=== PATIENT | male | born 1930 | race Caucasian/White ===

== ENCOUNTER 2016-10-13 23:48 | Inpatient (IN) | payer OTHER ==
[~2016-10-13] VITALS: Ht 175.3 cm; Wt 68.9 kg
[~2016-10-13 23:48] MED LIST: ALEN70TA2 PO; ASPEC81 PO; ATOR-54 PO; B CO PO; CHOL100010 PO; CMD75 PO; CYAN100020 PO; FRRS300 PO; GLC/500 PO; LISI2.5T5 PO; MULTCHW PO; NTRGSL/4 UT; TAMS0.4C59 PO; TPRSR25 PO; WARF1TAB6 PO; XPNINS1255 INH
[2016-10-14] MEDS ORDERED: ASPIRIN 324 MG CHEW PO STA (00:07)
--- NOTE | 2016-10-14 00:26 | EMERGENCY ROOM VISIT NOTE ---
History Report prepared by Latoya: Rajesh Ch Under the Supervision of: Dr. Niko Pinon M.D. First contact with patient: 23:58 Chief Complaint: CHEST PAIN Stated Complaint: CHEST AND LEFT SHOULDER PAIN History of Present Illness The patient is a 86 year old male who presents to the Emergency Room with complaints of resolved chest pain that occurred prior to arrival. The patient's states that the patient was having chest pain, and he took 3 nitro, and the pain has felt better. Additionally states that he was sweaty and he had some shortness of breath. He has a past history of a mechanical heart valve, a pacemaker, and a hip replacement. Additionally, he is currently on Coumadin. The patient denies any abdominal pain, melena, or loss of consciousness. Source of History: patient, spouse/significant other Onset: prior to arrival Position: chest Timing: resolved Modifying Factors (Relieving): other (nitro) Associated Symptoms: + SOB, + diaphoresis, No LOC, No abdominal pain, No melena Review of Systems See HPI for pertinent positives & negatives. A total of 10 systems reviewed and were otherwise negative. Past Medical & Surgical Medical Problems: (1) BPH (benign prostatic hyperplasia) (2) CAD (coronary artery disease) (3) CHF (congestive heart failure) (4) CKD (chronic kidney disease), stage III (5) COPD (chronic obstructive pulmonary disease) (6) DM2 (diabetes mellitus, type 2) (7) EKG abnormalities (8) H/O: CVA (cerebrovascular accident) (9) HLD (hyperlipidemia) (10) HTN (hypertension) (11) NSTEMI (non-ST elevated myocardial infarction) (12) Osteoporosis (13) PVD (peripheral vascular disease) (14) SOB (shortness of breath) (15) Tobacco abuse Surgical Problems: (1) H/O carotid endarterectomy (2) H/O colonoscopy (3) History of cataract surgery (4) History of hip surgery (5) Hx of CABG (6) Hx of tonsillectomy (7) Mechanical heart valve present (8) S/P aortobifemoral bypass surgery (9) S/P MVR (mitral valve replacement) Family History Diabetes mellitus FHx: heart disease Hypertension Social History Smoking Status: Current Every Day Smoker Alcohol Use: occasionally Marital Status: Housing Status: lives with significant other Occupation Status: retired Current/Historical Medications Scheduled Alendronate Sodium (Fosamax), 70 MG PO WK Aspirin (Aspirin 81), 81 MG PO DAILY Atorvastatin (Atorvastatin Calcium), 40 MG PO DAILY B-Complex W/ C & Folic Acid (Super B-Complex/Vitamin C), 1 TABLET PO DAILY Cholecalciferol (Vitamin D), 2,000 UNIT PO QPM Cyanocobalamin (Vitamin B12), 1 TAB PO DAILY Ferrous Sulfate (Ferrous Sulfate), 325 MG PO QAM Lisinopril (Prinivil), 2.5 MG PO DAILY Metformin Hcl (Glucophage), 1,000 MG PO QPM Metoprolol Succinate (Metoprolol Succinate ER), 25 MG PO DAILY Multiple Vitamins W/ Minerals (Centrum Silver), 1 TAB PO DAILY Tamsulosin HCl (Tamsulosin HCl), 0.4 MG PO DAILY Warfarin Sod (Jantoven), 7.5 MG PO UD Scheduled PRN Levalbuterol Hcl (Levalbuterol Hcl), 1 AMP INH Q4 PRN for SOB/Wheezing Nitroglycerin (Nitrostat), 0.4 MG UT UD PRN for Chest Pain Tramadol (Ultram), 50 MG PO Q6 PRN for Pain Allergies Coded Allergies: Gemfibrozil (Verified Allergy, Unknown, 10/14/16) Physical Exam Vital Signs Date Time Temp Pulse Resp B/P Pulse Ox O2 Delivery O2 Flow Rate FiO2 10/14/16 01:30 87 21 163/92 94 Room Air 10/14/16 01:00 91 21 173/98 92 Room Air 10/14/16 00:31 92 24 156/89 92 Room Air 10/14/16 00:26 94 24 164/86 93 Room Air 10/14/16 00:20 93 10/14/16 00:09 Room Air 10/13/16 23:54 36.7 99 20 135/75 91 Room Air Physical Exam GENERAL: Patient is elderly appearing and in no acute distress. HEENT: No acute trauma, normocephalic atraumatic, mucous membranes moist, no nasal congestion, no scleral icterus. NECK: No stridor, no adenopathy, no meningismus, trachea is midline. LUNGS: No dyspnea. Clear to auscultation and equal bilaterally. No wheeze, no rhonchi. HEART: Soft, metallic click with slight murmur. Regular rate and rhythm. No rubs, gallops appreciated. CHEST: Pacemaker in the left upper chest. ABDOMEN: Soft, nontender, bowel sounds positive, no masses appreciated, no peritonitis. BACK: No midline tenderness, no CVA tenderness EXTREMITIES: Normal motion all extremities, no cyanosis, no edema. NEUROLOGIC: Alert and oriented, no acute motor or sensory deficits, no focal weakness, cranial nerves grossly intact. SKIN: No rash, no jaundice, no diaphoresis. Medical Decision & Procedures ER Provider Diagnostic Interpretation: X ray results are stated below per my interpretation. Opacities in the right lower lung field. No pneumothorax. No obvious effusion Laboratory Results 10/14/16 00:20 Red Blood Count 3.68, Mean Corpuscular Volume 88.9, Mean Corpuscular Hemoglobin 29.1, Mean Corpuscular Hemoglobin Concent 32.7, Mean Platelet Volume 9.1, Neutrophils (%) (Auto) 90.1, Lymphocytes (%) (Auto) 6.1, Monocytes (%) (Auto) 3.4, Eosinophils (%) (Auto) 0.2, Basophils (%) (Auto) 0.2, Neutrophils # (Auto) 5.64, Lymphocytes # (Auto) 0.38, Monocytes # (Auto) 0.21, Eosinophils # (Auto) 0.01, Basophils # (Auto) 0.01 10/14/16 00:20 Test 10/14/16 00:20 White Blood Count 6.25 K/uL (4.8-10.8) Red Blood Count 3.68 M/uL (4.7-6.1) Hemoglobin 10.7 g/dL (14.0-18.0) Hematocrit 32.7 % (42-52) Mean Corpuscular Volume 88.9 fL (80-100) Mean Corpuscular Hemoglobin 29.1 pg (25-34) Mean Corpuscular Hemoglobin Concent 32.7 g/dl (32-36) Platelet Count 237 K/uL (130-400) Mean Platelet Volume 9.1 fL (7.4-10.4) Neutrophils (%) (Auto) 90.1 % Lymphocytes (%) (Auto) 6.1 % Monocytes (%) (Auto) 3.4 % Eosinophils (%) (Auto) 0.2 % Basophils (%) (Auto) 0.2 % Neutrophils # (Auto) 5.64 K/uL (1.4-6.5) Lymphocytes # (Auto) 0.38 K/uL (1.2-3.4) Monocytes # (Auto) 0.21 K/uL (0.11-0.59) Eosinophils # (Auto) 0.01 K/uL (0-0.5) Basophils # (Auto) 0.01 K/uL (0-0.2) RDW Standard Deviation 46.6 fL (36.4-46.3) RDW Coefficient of Variation 14.2 % (11.5-14.5) Immature Granulocyte % (Auto) 0.0 % Immature Granulocyte # (Auto) 0.00 K/uL (0.00-0.02) Ovalocytes 1+ Acanthocytes 1+ Prothrombin Time 39.7 SECONDS (9.0-12.0) Prothromb Time International Ratio 3.5 (0.9-1.1) Activated Partial Thromboplast Time 39.7 SECONDS (21.0-31.0) Partial Thromboplastin Ratio 1.5 Anion Gap 6.0 mmol/L (3-11) Estimated GFR () 53.1 Estimated GFR (Non- 45.8 BUN/Creatinine Ratio 10.3 (10-20) Calcium Level 9.0 mg/dl (8.5-10.1) Creatine Kinase MB 10.8 ng/ml (0.5-3.6) Creatine Kinase MB Ratio 6.5 (0-3.0) Troponin I 1.470 ng/ml (0-0.045) Laboratory results as reviewed by me. Medications Administered Medications (Trade) Dose Ordered Sig/Alejandro Route Start Time Stop Time Status Last Admin Dose Admin Aspirin (Aspirin Chew) 324 mg NOW STAT PO 10/14/16 00:07 10/14/16 00:08 DC 10/14/16 00:16 324 MG ECG Indication: chest pain Rate (beats per minute): 103 Rhythm: other (atrial sensed ventricular paced) Findings: no acute ischemic change, no ectopy ED Course 2358: The patient was evaluated in room A4. A complete history and physical exam was performed. 0007: Aspirin Chew 324mg PO 0125: I reevaluated the patient, and he was feeling well. 0128: I discussed the patient's case with Dr. Almeida. He is going to evaluate the patient for further treatment Medical Decision Differential: Cardiac Ischemia (STEMI, NSTEMI, Unstable Angina, etc), Aortic Dissection, Arrhythmia, Pulmonary Embolism, Pneumonia, Pneumothorax, MSK, Infectious, Pericarditis/Myocarditis, Esophageal Rupture, Gastrointestinal, amongst other pathologies entertained. 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 Associated nausea, diaphoresis, lightheaded and SHOB. Now without discomfort. EKG with ventricular paced rhythm without acute ischemia and he is without any symptoms currently. INR is therapeutic. Symptoms not consistent with dissection and PE unlikely given INR level. Trop elevated where previously normal. I suspect he had NSTEMI though could have been arrhythmia as well. Hold on further anticoagulation given INR and completely symptom free throughout ED stay. Will come in for further work-up and evaluation. Consults Time Called: 012 Consulting Physician: Dr. Almeida Returned Call: [phone] I discussed the patient's case with Dr. Almeida. He is going to evaluate the patient for further treatment Impression Primary Impression: Left sided chest pain Additional Impression: Elevated troponin Scribe Attestation The scribe's documentation has been prepared under my direction and personally reviewed by me in its entirety. I confirm that the note above accurately reflects all work, treatment, procedures, and medical decision making performed by me. Departure Information Dispostion Being Evaluated By Hospitalist Prescriptions Levalbuterol Hcl (LEVALBUTEROL HCL) 1.25 Mg/3 Ml Neb 1 AMP INH Q4 Y for SOB/Wheezing, #1 Prov: Donald Almeida MD 10/14/16 Tramadol (Ultram) 50 Mg Tab 50 MG PO Q6 Y for Pain, #30 TAB Prov: Donald Almeida MD 10/14/16 Warfarin Sod (Jantoven) 5 Mg Tab 7.5 MG PO UD, #30 COUMADIN 10MG PO DAILY ON , AND WEDNESDAY AND COUMADIN 7.5MG PO DAILY ON WEDNESDAY,WEDNESDAY, WEDNESDAY AND WEDNESDAY Prov: Donald Almeida MD 10/14/16 Metoprolol Succinate (Metoprolol Succinate ER) 25 Mg Tabcr 25 MG PO DAILY, #30 Prov: Donald Almeida MD 10/14/16 Referrals Arabella Davidson M.D. (PCP) Patient Instructions My [facility] Problem Qualifiers
[2016-10-14 00:36] LABS: HEMATOCRIT 32.7 % (42-52); MEAN CELL VOLUME 88.9 fL (80-100); MEAN CORPUSCULAR HEMOGLOBIN 29.1 pg (25-34); MEAN CORPUSCULAR HGB CONC 32.7 g/dl (32-36); MEAN PLATELET VOLUME 9.1 fL (7.4-10.4); PLATELET COUNT 237 K/uL (130-400); RED BLOOD COUNT 3.68 M/uL (4.7-6.1); WHITE BLOOD COUNT 6.25 K/uL (4.8-10.8)
[2016-10-14 00:45] LABS: INR 3.5 (0.9-1.1); PARTIAL THROMBOPLASTIN RATIO 1.5; PROTHROMBIN TIME (PATIENT) 39.7 SECONDS (9.0-12.0)
[2016-10-14] MEDS ORDERED: TPRSR/25 PO ×2 (00:51→02:33)
[2016-10-14] MEDS ORDERED: METF-384 PO (00:51)
[2016-10-14] MEDS ORDERED: FLM4 PO (00:51)
[2016-10-14] MEDS ORDERED: LPT40 PO (00:54)
[2016-10-14] MEDS ORDERED: CHOL200010 PO (00:55)
[2016-10-14] MEDS ORDERED: ASPI-435 PO (00:55)
[2016-10-14] MEDS ORDERED: LISI-729 PO (00:57)
[2016-10-14 00:59] LABS: ACANTHOCYTES 1+; BASO % 0.2 %; BASO ABS # 0.01 K/uL (0-0.2); COMPLETE YES; EOS % 0.2 %; LYMPH % 6.1 %; LYMPH ABS # 0.38 K/uL (1.2-3.4); MONO % 3.4 %; NEUT % 90.1 %; OVALOCYTES 1+
[2016-10-14] MEDS ORDERED: WARF5TAB7 PO ×2 (00:59→02:33)
[2016-10-14 01:00] LABS: BLOOD UREA NITROGEN 14 mg/dl (7-18); BUN/CREATININE RATIO 10.3 (10-20); CARBON DIOXIDE 30 mmol/L (21-32); CHLORIDE 105 mmol/L (98-107); GLUCOSE 244 mg/dl (70-99); POTASSIUM 4.2 mmol/L (3.5-5.1); SODIUM 141 mmol/L (136-145)
[2016-10-14 01:06] LABS: CKMB/CK RATIO 6.5 (0-3.0)
[2016-10-14 01:40] VITALS: Ht 175.3 cm; Wt 68.9 kg
[2016-10-14] MEDS ORDERED: ONDANSETRON INJ 2 MG/ML 2 ML VIAL IV PRN (02:30)
[2016-10-14] MEDS ORDERED: ACETAMINOPHEN 325 MG TAB PO PRN (02:30)
[2016-10-14] MEDS ORDERED: NITROGLYCERIN 0.4 MG SL PER TAB CHARGE SL PRN (02:30)
[2016-10-14] MEDS ORDERED: MAGNESIUM HYDROXIDE SUSP 30 ML UDC PO PRN (02:30)
[2016-10-14] MEDS ORDERED: MoRPHine SULFATE 2 MG/ML CARP IV PRN (02:30)
[2016-10-14] MEDS ORDERED: ALUMINUM/MAGNESIUM/SIMETH (MAALOX MAX) 30 ML UDC PO PRN (02:30)
[2016-10-14] MEDS ORDERED: TRAM-10 PO (02:33)
[2016-10-14] MEDS ORDERED: LEVA1.258 INH (02:33)
[2016-10-14] MEDS ORDERED: LEVALBUTEROL 1.25MG/3ML NEB INH PRN (02:45)
[2016-10-14] MEDS ORDERED: NITROGLYCERIN 0.4 MG SL PER TAB CHARGE UT PRN (02:45)
[2016-10-14] MEDS ORDERED: TRAMADOL HCL 50 MG TAB PO PRN (02:45)
--- NOTE | 2016-10-14 04:02 | HISTORY & PHYSICAL EXAMINATION ---
DATE OF ADMISSION: 10/14/2016 CHIEF COMPLAINT: Chest pain. HISTORY OF PRESENT ILLNESS: This is an 86-year-old male with past medical history significant for CAD, status post CABG, mitral valve replacement on Coumadin, diabetes, hypertension, hyperlipidemia, COPD, tobacco abuse, history of CHF, and chronic kidney disease stage III, presents with chest pain. The patient after eating his dinner around 6:00, was not feeling well and then at 9:00, he had some nausea and had some chest pain. He complained of chest pain mostly around his pacemaker site, about 5/10 in severity and radiating to his left shoulder, associated with some nausea, diaphoresis, and shortness of breath, and he took 3 nitroglycerin, that resolved his pain and he was brought into the ER. Currently resting comfortably. He is currently chest pain free. Denies any shortness of breath. No nausea, no vomiting at this time. Hemodynamically stable. No recent fever or chills. No cough. Appetite has not returned since his hip surgery, lost several pounds, ambulates with the help of a cane. Normal bowel and bladder movements. ALLERGIES: TO GEMFIBROZIL. PAST MEDICAL HISTORY: As mentioned above. PAST SURGICAL HISTORY: History of CABG, history of hip surgery, cataract surgery, carotid endarterectomy, mechanical heart valve replacement, status post aortobifemoral bypass surgery. MEDICATIONS: Currently, the patient is on Fosamax 70 mg p.o. weekly, Coumadin alternating 10 mg and 7.5 mg daily, Flomax 0.4 mg daily, ferrous sulfate 325 mg p.o. daily, metoprolol succinate 25 mg p.o. daily, Lipitor 40 mg p.o. daily, metformin 1000 mg p.o. daily with breakfast, lisinopril 2.5 mg p.o. daily, tramadol 50 mg p.o. q. 6 hours p.r.n., Xopenex inhalation every 4 hours p.r.n., vitamin D 2000 units p.o. daily, aspirin enteric-coated 81 mg p.o. daily, B complex-C one capsule p.o. daily, multivitamins with minerals 1 capsule p.o. daily, nitroglycerin 0.4 mg sublingual p.r.n., vitamin B12 1000 mcg p.o. daily. FAMILY HISTORY: Significant for brother, cancer and lung disorder. Sister, cancer. Mother has diabetes. Mother has stroke. SOCIAL HISTORY: Smokes 0.75 packs a day for last 60 years. Alcohol occasional. No drug use. Currently lives with his . REVIEW OF SYMPTOMS: As per HPI. Rest of review of systems negative. PHYSICAL EXAMINATION: GENERAL: The patient is old and frail, not in distress. VITAL SIGNS: Temperature 36.7, pulse 87, respiratory rate 21, blood pressure 163/92, oxygen 94% on room air. HEENT: No pallor, no icterus. Pupils equal, round, and reactive to light. NECK: No JVD, no neck masses, no carotid bruit. CARDIOVASCULAR: S1, S2 heard. Murmur in mitral area. No gallop. ABDOMEN: Soft, bowel sounds present, nontender. No distention. CENTRAL NERVOUS SYSTEM: Cranial nerves II-XII grossly intact. Nonfocal. EXTREMITIES: No edema, no erythema. LABORATORY DATA: WBC 6.2, hemoglobin 10.7, hematocrit 32.7, platelets 237. Sodium 141, potassium 4.2, chloride 105, CO2 of 30, BUN 14, creatinine 1.4, serum glucose 244, calcium 9, total creatine kinase 166, troponin 1.4. PT 10.5, INR 3.5. Chest x-ray, no acute findings seen. EKG: Ventricular paced rhythm with rate of 103. ASSESSMENT AND PLAN: This is an 86-year-old male who presents with chest pain. 1. Chest pain, [id number] elevation myocardial infarction with Troponin of 1.4. The patient is currently chest pain free after he took his nitroglycerin. The patient is on Coumadin for his mitral valve replacement and INR is 3.5. The patient will continue his home medications of aspirin, beta jordan, statin. Follow his lipid profile. Trend his cardiac enzymes. Follow echocardiogram. Close monitor in the PCU and cardiology consult. 2. History of coronary artery disease, status post coronary artery bypass graft. Continue his home medications of aspirin, statin, beta jordan and lisinopril. 3. History of diabetes. Hold metformin. Follow HbA1c. Place on insulin sliding scale. Monitor blood sugars. 4. History of anemia, iron deficiency, on iron pills. Hemoglobin is 10.7. We will follow the labs. 5. History of hypertension. Continue his lisinopril and metoprolol. Monitor his blood pressure while in the hospital. 6. History of chronic kidney disease stage III, creatinine baseline of 1-1.1. We will monitor the labs. 7. History of mechanical valve replacement. Goal INR 2.5-3.5. INR is 3.5 today. Daily PT/INR while in the hospital. 8. 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 On Toprol-XL and QUIQUE inhibitors. Currently not volume overloaded. We will monitor his clinical status. 9. History of sinus node dysfunction with symptomatic bradycardia, status post dual chamber pacemaker implantation on 01/01/2016. Currently, the patient complains of pain around the pacemaker area. We will do pacemaker interrogation. 10. History of chronic obstructive pulmonary disease, on home inhalers, oxygen p.r.n. 11. Benign prostatic hyperplasia, on Flomax. 12. Deep vein thrombosis prophylaxis, on Coumadin. INR 3.5. DISPOSITION: Admit to tele floor. PT and OT prior to discharge. Social service for discharge planning. Expect discharge home and follow up with his family doctor and his pecan mallow dipper. Level 1 full code only if there is a chance of recovery. MTDD
[2016-10-14] MEDS: INSULIN ASPART 100 UNITS/ML 3 ML PEN SC SCH ×3 (06:00→17:31)
[2016-10-14] MEDS ORDERED: GLUCAGON FOR INJ 1 MG VIAL SQ PRN (06:30)
[2016-10-14] MEDS ORDERED: DEXTROSE 50% 50 ML SYR IV PRN (06:30)
[2016-10-14] MEDS ORDERED: GLUCOSE 40% GEL 15 GM TUBE PO PRN (06:30)
[2016-10-14] MEDS ORDERED: GLUCOSE 10 TABS/TUBE PO PRN (06:30)
--- NOTE | 2016-10-14 07:08 | DIAGNOSTIC IMAGING REPORT ---
CHEST ONE VIEW PORTABLE CLINICAL HISTORY: Chest pain. Left shoulder pain. COMPARISON STUDY: Chest radiograph December 31, 2015. FINDINGS: A dual lead left subclavian pacemaker, median sternotomy wires and a prosthetic cardiac valve are noted. There is mild cardiomegaly. There is no pneumothorax. Mild right lower lung opacity is present. Interstitial thickening is noted, greater within the right lung. IMPRESSION: 1. Asymmetric interstitial thickening, greater within the right lung. Mild pulmonary edema is favored. An infectious process could appear similar although is considered less likely. 2. Mild right lower lung opacity which favors atelectasis. Electronically signed by: Mikael Small M.D. 10/14/2016 7:07 AM Dictated Date/Time: 10/14/2016 7:05 AM
[2016-10-14 07:09] LABS: CHOLESTEROL/HDL RATIO 2.7; CKMB/CK RATIO 11.5 (0-3.0)
[2016-10-14 07:18] LABS: ESTIMATED AVERAGE GLUCOSE 146 mg/dl; HA1C FLAG Normal (Normal)
[2016-10-14 07:56] VITALS: BP 165/83; PULSE 84; TEMP 36.9; O2SAT 92
[2016-10-14 08:00] VITALS: O2SAT 92
--- NOTE | 2016-10-14 08:31 | ECHOCARDIOGRAM REPORT ---
*NOTICE TO RECEIVING REPUBLICAN AGENCY This information is strictly Confidential and protected under [place] law. [place] law prohibits you from making any further disclosure of this information unless further disclosure is expressly permitted by the written consent of the person to whom it pertains or is authorized by law. A general authorization for the release of medical or other information is not sufficient for this purpose. Hospital accepts no responsibility if the information is made available to any other person, INCLUDING THE PATIENT. Interpretation Summary * Name: MAURA YUSUF Study Date: 10/14/2016 06:54 AM BP: 165/83 mmHg * Patient Location: C.2E\[id number]\E211\S\1 HR: 84 * : 1930 (M/d/yyyy) Gender: Male Height: 69 in * Age: 86 yrs Ethnicity: [place] Weight: 158 lb * Ordering Physician: Donald Almeida * Referring Physician: Self, Referred * Performed By: Laverne Mendoza RDCS * * Reason For Study: Chest pain * BSA: 1.9 m2 * The study was technically adequate. * Compared to prior study, changes are noted. * -- Conclusions -- * Left ventricular systolic function is severely reduced. * Ejection Fraction = 30-35%. * The inferior and posterior paige are akinetic. * The apical segments are severe hypokinetic to akinetic. * The anterior wall and septum are hypokinetic. * There is a mechanical mitral valve. * Significant mitral regurgitation is absent. * There is no mitral valve stenosis. * There is trace tricuspid regurgitation. * The estimated systolic PAP is 51mmHg. Procedure Details * A complete two-dimensional transthoracic echocardiogram was performed (2D, M-mode, Doppler and color flow Doppler). Left Ventricle * The left ventricle is normal in size. * There is mild concentric left ventricular hypertrophy. * Left ventricular systolic function is severely reduced. * Ejection Fraction = 30-35%. * The inferior and posterior paige are akinetic. The apical segments are severe hypokinetic to akinetic. The anterior wall and septum are hypokinetic. Right Ventricle * The right ventricular cavity size is normal (basal dimension <4.2 cm in right ventricular apical 4-chamber view). * There is a pacemaker lead in the right ventricle. * The right ventricular systolic function is qualitatively normal. Atria * The left atrium is moderately dilated. * Right atrium not well visualized. Mitral Valve * There is no mitral valve stenosis. * Significant mitral regurgitation is absent. * There is a mechanical mitral valve. Tricuspid Valve * The tricuspid valve is not well visualized. * There is no tricuspid stenosis. * There is trace tricuspid regurgitation. * The estimated systolic PAP is 51mmHg. Aortic Valve * The aortic valve is not well visualized. * Aortic valve sclerosis mild, without significant aortic valvular stenosis. * There is no significant aortic regurgitation. Pulmonic Valve * The pulmonary valve is not well seen, but the Doppler examination is normal without significant regurgitation or stenosis. Great Vessels * The aortic root is normal size. Pericardium/Pleural * There is no pericardial effusion. Great Vessels * Normal inferior vena cava size and collapsability with sniff indicates a normal right atrial pressure of 3 mmHg Left Ventricular Diastolic Function * Pulse wave TDI of the anterior and posterior mitral annulas demonstrates abnormal LV relaxation MMode 2D Measurements and Calculations IVSd 1.2 cm LVIDd 4.8 cm LVIDs 3.8 cm LVPWd 0.99 cm IVS/LVPW 1.3 FS 20.7 % EDV(Teich) 107.4 ml ESV(Teich) 62.1 ml EF(Teich) 42.1 % EDV(cubed) 110.5 ml ESV(cubed) 55.1 ml EF(cubed) 50.1 % LV mass(C)d 197.6 grams LV mass(C)dI 105.8 grams/m\S\2 CO(Teich) 3.4 l/min CI(Teich) 1.8 l/min/m\S\2 SV(Teich) 45.3 ml SI(Teich) 24.2 ml/m\S\2 CO(cubed) 4.2 l/min CI(cubed) 2.3 l/min/m\S\2 SV(cubed) 55.4 ml SI(cubed) 29.6 ml/m\S\2 Ao root diam 3.5 cm Ao root area 9.8 cm\S\2 ACS 1.1 cm LVAd ap4 29.7 cm\S\2 LVLd ap4 8.5 cm EDV(MOD-sp4) 87.0 ml LVAs ap4 23.3 cm\S\2 LVLs ap4 8.5 cm ESV(MOD-sp4) 54.0 ml EF(MOD-sp4) 37.9 % LVAd ap2 29.1 cm\S\2 LVLd ap2 8.4 cm EDV(MOD-sp2) 83.0 ml LVAs ap2 24.4 cm\S\2 LVLs ap2 8.5 cm ESV(MOD-sp2) 57.0 ml EF(MOD-sp2) 31.3 % CO(MOD-sp4) 2.5 l/min CI(MOD-sp4) 1.3 l/min/m\S\2 SV(MOD-sp4) 33.0 ml SI(MOD-sp4) 17.7 ml/m\S\2 CO(MOD-sp2) 2.0 l/min CI(MOD-sp2) 1.1 l/min/m\S\2 SV(MOD-sp2) 26.0 ml SI(MOD-sp2) 13.9 ml/m\S\2 Doppler Measurements and Calculations MV E max michelle 140.7 cm/sec MV V2 max 147.7 cm/sec MV max PG 8.7 mmHg MV V2 mean 65.1 cm/sec MV mean PG 2.5 mmHg MV V2 VTI 28.9 cm MV dec time 0.19 sec Ao V2 max 87.7 cm/sec Ao max PG 3.1 mmHg Ao max PG (full) 0.92 mmHg LV V1 max PG 2.2 mmHg LV V1 max 73.4 cm/sec PA V2 max 58.6 cm/sec PA max PG 1.4 mmHg PA acc slope 420.5 cm/sec\S\2 PA acc time 0.11 sec TR max michelle 347.5 cm/sec PA pr(Accel) 31.5 mmHg
[2016-10-14] MEDS ORDERED: LISINOPRIL 2.5 MG TAB PO SCH (09:00)
[2016-10-14] MEDS ORDERED: FERROUS SULFATE 325 MG TAB PO SCH (09:00)
[2016-10-14] MEDS ORDERED: CYANOCOBALAMIN 500 MCG TAB (VIT B-12) PO SCH (09:00)
[2016-10-14] MEDS ORDERED: METOPROLOL SUCC 25MG EXT REL TAB PO SCH (09:00)
[2016-10-14] MEDS ORDERED: ATORVASTATIN 40 MG TAB PO SCH (09:00)
[2016-10-14] MEDS ORDERED: CEROVITE ADV FORMULA TAB PO SCH (09:00)
[2016-10-14] MEDS ORDERED: ASPIRIN 81 MG ECTAB PO SCH (09:00)
[2016-10-14] MEDS ORDERED: TAMSULOSIN HCL 0.4 MG CAP PO SCH (09:00)
--- NOTE | 2016-10-14 10:14 | CARDIOLOGY CONSULTATION ---
DATE OF CONSULTATION: 10/14/2016 REFERRING PHYSICIAN: Dr. Logan. REASON FOR CONSULTATION: NSTEMI. CHIEF COMPLAINT ON ADMISSION: Chest pain. HISTORY OF PRESENT ILLNESS: Mr. Patel is a complex 86-year-old patient, who presented to the Emergency Department with chest discomfort beginning at the time of his evening meal. The pain lasted approximately 4 hours, described as a pressure and tightness. The pain was relieved with sublingual nitroglycerin. His initial troponin was approximately 2, repeat troponin was approximately 16 this morning. He has been pain-free overnight. Resting 2D transthoracic echo performed demonstrated decline in systolic function with an estimated ejection fraction of 30-35%. He is currently resting comfortably, lying supine. He is somewhat of a poor historian; however, lives independently with his . He denies any recent exertional chest pain or unusual shortness of breath. He has a dual chamber pacemaker due to history of symptomatic bradycardia. Previous ejection fraction was approximately 50%. REVIEW OF SYSTEMS: The pertinent positives are as noted above; a comprehensive 10-system review is otherwise negative. PAST MEDICAL HISTORY: 1. Coronary artery disease status post coronary artery bypass grafting x2 in 1997. 2. Mechanical mitral valve replacement in 1997. 3. Carotid artery disease status post left-sided carotid endarterectomy. 4. Peripheral vascular disease status post aortoiliac bypass grafting. 5. Emphysema. 6. Dyslipidemia. 7. 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 8. CHF. 9. Chronic anemia. 10. Chronic kidney disease. PAST SURGICAL HISTORY: 1. Coronary bypass grafting x2 in 1997. 2. Pacemaker placement. 3. Mechanical mitral valve replacement. 4. Aortobifemoral bypass surgery. SOCIAL HISTORY: Current every day smoker. , lives with his . FAMILY HISTORY: Negative for premature CAD or sudden cardiac , however, noncontributory given patient's advanced age. OUTPATIENT MEDICATIONS: 1. Fosamax 70 mg weekly. 2. Aspirin 81 mg daily. 3. Atorvastatin 40 mg daily. 4. Ferrous sulfate 325 daily. 5. Lisinopril 2.5 mg daily. 6. Metformin 1000 mg daily. 7. Toprol-XL 25 mg daily. 8. Flomax 0.4 mg daily. 9. Warfarin 7.5 mg as directed by the Coumadin clinic. 10. Sublingual nitroglycerin as needed. 11. Tramadol as needed for pain. ALLERGIES: LISTED TO GEMFIBROZIL. ECG on admission demonstrates a ventricular paced rhythm. Chest x-ray demonstrates mild congestion, right lower lobe opacity favoring atelectasis. Telemetry demonstrates ventricular paced rhythm. PHYSICAL EXAMINATION: VITAL SIGNS: Temperature is 36.9 degrees centigrade, pulse 84 beats per minute and regular, respiratory rate 16 breaths per minute, blood pressure 163/83, his SaO2 is 92% on room air. GENERAL: NAD, hard of hearing, awake, alert and oriented x3. HEENT: Mucous membranes are moist. No scleral icterus. Conjunctivae are pink. NECK: Veins are flat. No JVD or HJR. No carotid bruits. HEART: Regular with a normal S1 and S2. There is a soft 1/6 systolic murmur heard best at the apex. LUNGS: Demonstrate crackles at the left base. No rhonchi or wheeze. ABDOMEN: Soft and nontender. No rebound or guarding. Normal bowel sounds. EXTREMITIES: Warm and dry without clubbing, cyanosis or edema. There is a 1/4 right-sided femoral pulse. The right-sided radial pulse is 0/4. His left sided radial is 2/4. His left-sided femoral pulse is 1/4. NEUROLOGIC: Demonstrates no focal motor deficits. FINAL IMPRESSION: 1. Non-ST elevation myocardial infarction with decline in left ventricular systolic function. 2. History of coronary artery bypass grafting x2 in 1997. 3. Mitral valve disease status post mechanical mitral valve replacement in 1997 -- INR is therapeutic. 4. Compensated systolic heart failure. 5. PVD with remote h/o aorto-iliac bypass. 6. Chronic kidney disease stage 3. 7. Active tobacco abuse with chronic obstructive pulmonary disease. 8. Chronic anemia. PLAN AND RECOMMENDATIONS: I had a long discussion with the patient regarding his NSTEMI and further treatment options. Given his complex cardiovascular and peripheral vascular disease recommend cardiac catheterization at [facility]. The patient is reluctant to transfer at this time. He is pain-free with mildly elevated blood pressure. I will add topical nitrates. I will discuss treatment options further with his family as requested. Other cardiovascular medications including beta-jordan, QUIQUE inhibitor and statin therapy will be continued as previously ordered. Warfarin will be placed on hold. I will continue to follow closely during hospitalization. ZOE
[2016-10-14 11:57] VITALS: BP 149/84; PULSE 76; TEMP 36.8; O2SAT 93
[2016-10-14 12:52] LABS: CKMB/CK RATIO 10.6 (0-3.0)
[2016-10-14] MEDS ORDERED: NICOTINE 14 MG/24 HR TDSY TD ONE (13:15)
[2016-10-14] MEDS ORDERED: LORAZEPAM 0.5 MG TAB PO PRN (13:15)
[2016-10-14] MEDS ORDERED: NITROGLYCERIN OINT 2% 1GM PACKET EXT SCH (14:00)
[2016-10-14] MEDS ORDERED: NTRO1 EXT (14:29)
[2016-10-14] MEDS ORDERED: NCDT14 TD (14:29)
--- NOTE | 2016-10-14 14:30 | Discharge Instructions ---
Discharge Instructions Date of Service October 14, 2016. Admission Reason for Admission: Nstemi Discharge Discharge Diagnosis / Problem: NON ST ELEVATION MYOCARDIAL INFARCTION Discharge Goals Goal(s): Diagnostic testing, Therapeutic intervention Activity Recommendations Activity Level: Assistance Required . Additional Information Patient informed of condition: Yes Advance Directives: No (UNKNOWN) DNR: No (PATIENT IS FULL CODE) Level of Care: Other ([facility]) Communicable Disease: No Prognosis: Other (GUARDED) Instructions / Follow-Up Instructions / Follow-Up PLEASE REFER TO SEPARATE MEDICAL RECONCILIATION SHEETS FOR UPDATED MEDICATION LIST AND HOSPITAL DISCHARGE SUMMARY FOR FURTHER DETAILS. Current Hospital Diet Patient's current hospital diet: Discharge Diet Recommended Diet: AHA Diet (Heart Healthy), Diabetes Type 2 Diet Fluid Restriction: 1500 ml (6 cups) Pending Studies Studies pending at discharge: yes List of pending studies: POSSIBLE CARDIAC CATHETERIZATION Physician Orders On Transfer Special Precautions: PLEASE REFER TO SEPARATE MEDICAL RECONCILIATION SHEETS FOR UPDATED MEDICATION LIST AND HOSPITAL DISCHARGE SUMMARY FOR FURTHER DETAILS. Laboratory Results Hemoglobin A1c Test 10/14/16 06:08 Range/Units Estimated Average Glucose 146 mg/dl Hemoglobin A1c 6.7 H 4.5-5.6 % Lipid Panel Test 10/14/16 06:08 Range/Units Triglycerides Level 83 0-150 mg/dl Cholesterol Level 124 0-200 mg/dl HDL Cholesterol 46 mg/dl Cholesterol/HDL Ratio 2.7 LDL Cholesterol, Calculated 61 mg/dl Medical Emergencies . Who to Call and When: Medical Emergencies: If at any time you feel your situation is an emergency, please call 911 immediately. . Non-Emergent Contact Non-Emergency issues call your: Primary Care Provider . Past History Medical & Surgical History: (1) NSTEMI (non-ST elevated myocardial infarction) (2) Elevated troponin (3) Left sided chest pain (4) Osteoporosis (5) SOB (shortness of breath) (6) CHF (congestive heart failure) (7) COPD (chronic obstructive pulmonary disease) (8) EKG abnormalities (9) PVD (peripheral vascular disease) (10) CAD (coronary artery disease) (11) BPH (benign prostatic hyperplasia) (12) DM2 (diabetes mellitus, type 2) (13) H/O: CVA (cerebrovascular accident) (14) HTN (hypertension) (15) HLD (hyperlipidemia) (16) CKD (chronic kidney disease), stage III (17) Tobacco abuse (18) S/P aortobifemoral bypass surgery (19) S/P MVR (mitral valve replacement) (20) Mechanical heart valve present (21) Hx of CABG (22) H/O carotid endarterectomy (23) History of cataract surgery (24) H/O colonoscopy (25) Hx of tonsillectomy (26) History of hip surgery (27) Family history of diabetes mellitus (28) Family history of hypertension (29) FHx: heart disease . "Provider Documentation" section prepared by Gerald Logan. . Core Measure Problem Core Measures: AMI AMI Core Measures Reason no ASA as I/P: Treatment provided - N/A Reason no ASA at D/C: Treatment provided - N/A Reason no statin as I/P: Treatment provided - N/A Reason no statin at D/C: Treatment provided - N/A
--- NOTE | 2016-10-14 14:42 | Discharge Summary ---
Discharge Summary Date of Service October 14, 2016. Discharge Summary Admission Date: October 14, 2016 at 02:27 Discharge Date: October 14, 2016 Principal Diagnosis: Chest pain, [id number] elevation myocardial infarction Secondary Diagnoses/Problems: Please refer to hospital course below. Procedures: Echo: -- Conclusions -- * Left ventricular systolic function is severely reduced. * Ejection Fraction = 30-35%. * The inferior and posterior paige are akinetic. * The apical segments are severe hypokinetic to akinetic. * The anterior wall and septum are hypokinetic. * There is a mechanical mitral valve. * Significant mitral regurgitation is absent. * There is no mitral valve stenosis. * There is trace tricuspid regurgitation. * The estimated systolic PAP is 51mmHg. Consultations: Manugrapher Dr. Bentley Pending Studies/Follow-Up: Please refer to hospital course below. Medication Reconciliation New Medications: Nicotine (Nicotine) 1 Patch Tdsy 1 PATCH TD QAM for 7 Days Nitroglycerin (Nitro-Bid) 1 Inch/Pkt Oint 0.5 INCH EXT Q6H for 3 Days Continued Medications: Alendronate Sodium (Fosamax) 70 Mg Tab 70 MG PO WK take daily on Aspirin (Aspirin 81) 81 Mg Tab 81 MG PO DAILY Atorvastatin (Atorvastatin Calcium) 40 Mg Tab 40 MG PO DAILY B-Complex W/ C & Folic Acid (Super B-Complex/Vitamin C) 1 Tab Tab 1 TABLET PO DAILY Cholecalciferol (Vitamin D) 2,000 Unit Cap 2000 UNIT PO QPM Cyanocobalamin (Vitamin B12) 1,000 Mcg Tab 1 TAB PO DAILY Ferrous Sulfate (Ferrous Sulfate) 325 Mg Tab 325 MG PO QAM for 30 Days, #30 TAB Levalbuterol Hcl (Levalbuterol Hcl) 1.25 Mg/3 Ml Neb 1 AMP INH Q4 PRN for SOB/Wheezing, #1 Lisinopril (Prinivil) 5 Mg Tab 2.5 MG PO DAILY, TAB Metoprolol Succinate (Metoprolol Succinate ER) 25 Mg Tabcr 25 MG PO DAILY, #30 Multiple Vitamins W/ Minerals (Centrum Silver) 1 Chw Chw 1 TAB PO DAILY Nitroglycerin (Nitrostat) 0.4 Mg Tab 0.4 MG UT UD PRN for Chest Pain Tamsulosin HCl (Tamsulosin HCl) 0.4 Mg Cap 0.4 MG PO DAILY Tramadol (Ultram) 50 Mg Tab 50 MG PO Q6 PRN for Pain, #30 TAB Warfarin Sod (Jantoven) 5 Mg Tab 7.5 MG PO UD, #30 COUMADIN 10MG PO DAILY ON , AND WEDNESDAY AND COUMADIN 7.5MG PO DAILY ON WEDNESDAY,WEDNESDAY, WEDNESDAY AND WEDNESDAY Discontinued Medications: Metformin Hcl (Glucophage) 1,000 Mg Tab 1000 MG PO QPM Admission Information HPI (per Admitting provider): DATE OF ADMISSION: 10/14/2016 CHIEF COMPLAINT: Chest pain. HISTORY OF PRESENT ILLNESS: This is an 86-year-old male with past medical history significant for CAD, status post CABG, mitral valve replacement on Coumadin, diabetes, hypertension, hyperlipidemia, COPD, tobacco abuse, history of CHF, and chronic kidney disease stage III, presents with chest pain. The patient after eating his dinner around 6:00, was not feeling well and then at 9:00, he had some nausea and had some chest pain. He complained of chest pain mostly around his pacemaker site, about 5/10 in severity and radiating to his left shoulder, associated with some nausea, diaphoresis, and shortness of breath, and he took 3 nitroglycerin, that resolved his pain and he was brought into the ER. Currently resting comfortably. He is currently chest pain free. Denies any shortness of breath. No nausea, no vomiting at this time. Hemodynamically stable. No recent fever or chills. No cough. Appetite has not returned since his hip surgery, lost several pounds, ambulates with the help of a cane. Normal bowel and bladder movements. ALLERGIES: TO GEMFIBROZIL. PAST MEDICAL HISTORY: As mentioned above. PAST SURGICAL HISTORY: History of CABG, history of hip surgery, cataract surgery, carotid endarterectomy, mechanical heart valve replacement, status post aortobifemoral bypass surgery. MEDICATIONS: Currently, the patient is on Fosamax 70 mg p.o. weekly, Coumadin alternating 10 mg and 7.5 mg daily, Flomax 0.4 mg daily, ferrous sulfate 325 mg p.o. daily, metoprolol succinate 25 mg p.o. daily, Lipitor 40 mg p.o. daily, metformin 1000 mg p.o. daily with breakfast, lisinopril 2.5 mg p.o. daily, tramadol 50 mg p.o. q. 6 hours p.r.n., Xopenex inhalation every 4 hours p.r.n., vitamin D 2000 units p.o. daily, aspirin enteric-coated 81 mg p.o. daily, B complex-C one capsule p.o. daily, multivitamins with minerals 1 capsule p.o. daily, nitroglycerin 0.4 mg sublingual p.r.n., vitamin B12 1000 mcg p.o. daily. FAMILY HISTORY: Significant for brother, cancer and lung disorder. Sister, cancer. Mother has diabetes. Mother has stroke. SOCIAL HISTORY: Smokes 0.75 packs a day for last 60 years. Alcohol occasional. No drug use. Currently lives with his . REVIEW OF SYMPTOMS: As per HPI. Rest of review of systems negative. Physical Exam (per Admitting): PHYSICAL EXAMINATION: GENERAL: The patient is old and frail, not in distress. VITAL SIGNS: Temperature 36.7, pulse 87, respiratory rate 21, blood pressure 163/92, oxygen 94% on room air. HEENT: No pallor, no icterus. Pupils equal, round, and reactive to light. NECK: No JVD, no neck masses, no carotid bruit. CARDIOVASCULAR: S1, S2 heard. Murmur in mitral area. No gallop. ABDOMEN: Soft, bowel sounds present, nontender. No distention. CENTRAL NERVOUS SYSTEM: Cranial nerves II-XII grossly intact. Nonfocal. EXTREMITIES: No edema, no erythema. Hospital Course ASSESSMENT AND PLAN: This is an 86-year-old male who presents with chest pain. 1. Chest pain, [id number] elevation myocardial infarction - patient presented with chest pain resolved with Nitro on coumadin INR 3.5 - Echo: * Left ventricular systolic function is severely reduced. * Ejection Fraction = 30-35%. * The inferior and posterior paige are akinetic. * The apical segments are severe hypokinetic to akinetic. * The anterior wall and septum are hypokinetic. * There is a mechanical mitral valve. * Significant mitral regurgitation is absent. * There is no mitral valve stenosis. * There is trace tricuspid regurgitation. * The estimated systolic PAP is 51mmHg. - troponin increased from 1 to 16 to 17 patient was not reporting any cardiac symptoms - evaluated by Dr. Bentley recommend transfer to [facility] for further management including possible Cardiac Cath 2. History of coronary artery disease, status post coronary artery bypass graft. - Continue his home medications of aspirin, statin, beta jordan and lisinopril. 3. History of diabetes. Hold metformin. - insulin sliding scale ordered 4. History of anemia, iron deficiency - monitor Hg 5. History of hypertension. - Continue his lisinopril and metoprolol. 6. History of chronic kidney disease stage III, - crea at baseline 7. History of mechanical valve replacement. Goal INR 2.5-3.5. - INR is 3.5 8. 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 - no signs of overt volume overload 9. History of sinus node dysfunction with symptomatic bradycardia, status post dual chamber pacemaker implantation on 01/01/2016. C 10. History of chronic obstructive pulmonary disease, on home inhalers, oxygen p.r.n. -stable 11. Benign prostatic hyperplasia, on Flomax. 12. Deep vein thrombosis prophylaxis, on Coumadin DISPOSITION: d/c to [facility] Total time spent on discharge = 35 minutes This includes examination of the patient, discharge planning, medication reconciliation, and communication with other providers. Discharge Instructions Discharge Instructions Date of Service October 14, 2016. Admission Reason for Admission: Nstemi Discharge Discharge Diagnosis / Problem: NON ST ELEVATION MYOCARDIAL INFARCTION Discharge Goals Goal(s): Diagnostic testing, Therapeutic intervention Activity Recommendations Activity Level: Assistance Required . Additional Information Patient informed of condition: Yes Advance Directives: No (UNKNOWN) DNR: No (PATIENT IS FULL CODE) Level of Care: Other ([facility]) Communicable Disease: No Prognosis: Other (GUARDED) Instructions / Follow-Up Instructions / Follow-Up PLEASE REFER TO SEPARATE MEDICAL RECONCILIATION SHEETS FOR UPDATED MEDICATION LIST AND HOSPITAL DISCHARGE SUMMARY FOR FURTHER DETAILS. Current Hospital Diet Patient's current hospital diet: Discharge Diet Recommended Diet: AHA Diet (Heart Healthy), Diabetes Type 2 Diet Fluid Restriction: 1500 ml (6 cups) Pending Studies Studies pending at discharge: yes List of pending studies: POSSIBLE CARDIAC CATHETERIZATION Physician Orders On Transfer Special Precautions: PLEASE REFER TO SEPARATE MEDICAL RECONCILIATION SHEETS FOR UPDATED MEDICATION LIST AND HOSPITAL DISCHARGE SUMMARY FOR FURTHER DETAILS. Laboratory Results Hemoglobin A1c Test 10/14/16 06:08 Range/Units Estimated Average Glucose 146 mg/dl Hemoglobin A1c 6.7 H 4.5-5.6 % Lipid Panel Test 5/10/17 06:08 Range/Units Triglycerides Level 83 0-150 mg/dl Cholesterol Level 124 0-200 mg/dl HDL Cholesterol 46 mg/dl Cholesterol/HDL Ratio 2.7 LDL Cholesterol, Calculated 61 mg/dl Medical Emergencies . Who to Call and When: Medical Emergencies: If at any time you feel your situation is an emergency, please call 911 immediately. . Non-Emergent Contact Non-Emergency issues call your: Primary Care Provider . Past History Medical & Surgical History: (1) NSTEMI (non-ST elevated myocardial infarction) (2) Elevated troponin (3) Left sided chest pain (4) Osteoporosis (5) SOB (shortness of breath) (6) CHF (congestive heart failure) (7) COPD (chronic obstructive pulmonary disease) (8) EKG abnormalities (9) PVD (peripheral vascular disease) (10) CAD (coronary artery disease) (11) BPH (benign prostatic hyperplasia) (12) DM2 (diabetes mellitus, type 2) (13) H/O: CVA (cerebrovascular accident) (14) HTN (hypertension) (15) HLD (hyperlipidemia) (16) CKD (chronic kidney disease), stage III (17) Tobacco abuse (18) S/P aortobifemoral bypass surgery (19) S/P MVR (mitral valve replacement) (20) Mechanical heart valve present (21) Hx of CABG (22) H/O carotid endarterectomy (23) History of cataract surgery (24) H/O colonoscopy (25) Hx of tonsillectomy (26) History of hip surgery (27) Family history of diabetes mellitus (28) Family history of hypertension (29) FHx: heart disease . "Provider Documentation" section prepared by Gerald Logan. . Core Measure Problem Core Measures: AMI AMI Core Measures Reason no ASA as I/P: Treatment provided - N/A Reason no ASA at D/C: Treatment provided - N/A Reason no statin as I/P: Treatment provided - N/A Reason no statin at D/C: Treatment provided - N/A
--- NOTE | 2016-10-14 14:44 | Progress Note ---
Progress Note Date of Service October 14, 2016. Progress Note patient seen and examined chest pain free denies dyspnea, palpitations, dizziness, nausea comfortable, in good spirits states he feels fine overall denies other symptoms labs reviewed echo reviewed reviewed Dr. Bentley's notes discussed with RN patient for transfer to [facility] today Dr. Bentley has arranged for an accepting medical team Gerald Logan MD
[2016-10-14 15:35] VITALS: BP 151/73; PULSE 72; TEMP 36.9; O2SAT 91
[2016-10-14 16:00] VITALS: O2SAT 92
[2016-10-14] MEDS ORDERED: WARFARIN SOD 7.5 MG TAB PO SCH (16:00)
[2016-10-14 18:54] VITALS: BP 151/73; PULSE 72; TEMP 36.9; O2SAT 91
[2016-10-14] MEDS ORDERED: CHOLECALCIFEROL 1000 INTER.UNIT TAB PO SCH (21:00)
[2016-10-15] MEDS ORDERED: NICOTINE 14 MG/24 HR TDSY TD SCH (09:00)
[2016-10-15] MEDS ORDERED: WARFARIN SOD 5 MG TAB PO SCH (16:00)
== END 2016-10-14 19:29 | disposition short-term general hospital (02) | DRG 281 ==
LOC: ENRESERVTM → ENRESERVDT → C.EDB 23:49 → C.2E 10-14 02:27
PROVIDERS: ADMIT Internal Medicine; ATTEND Internal Medicine
DX: I21.4 Non-ST elevation (NSTEMI) myocardial infarction (principal); I50.40 Unspecified combined systolic (congestive) and diastolic (congestive) heart failure; R07.89 Other chest pain; F17.210 Nicotine dependence, cigarettes, uncomplicated; D64.9 Anemia, unspecified; N40.0 Benign prostatic hyperplasia without lower urinary tract symptoms; R94.31 Abnormal electrocardiogram [ECG] [EKG]; M81.0 Age-related osteoporosis without current pathological fracture; E11.9 Type 2 diabetes mellitus without complications; R79.89 Other specified abnormal findings of blood chemistry; E78.5 Hyperlipidemia, unspecified; J44.9 Chronic obstructive pulmonary disease, unspecified; N18.3 Chronic kidney disease, stage 3 (moderate); I44.1 Atrioventricular block, second degree; R06.02 Shortness of breath; I25.10 Atherosclerotic heart disease of native coronary artery without angina pectoris; Z95.0 Presence of cardiac pacemaker; Z79.82 Long term (current) use of aspirin; I73.9 Peripheral vascular disease, unspecified; Z79.899 Other long term (current) drug therapy; Z79.891 Long term (current) use of opiate analgesic; Z79.01 Long term (current) use of anticoagulants; Z95.1 Presence of aortocoronary bypass graft; Z95.2 Presence of prosthetic heart valve; Z98.890 Other specified postprocedural states; Z79.83 Long term (current) use of bisphosphonates; Z82.49 Family history of ischemic heart disease and other diseases of the circulatory system